=== PATIENT | female | born 1945 | race Caucasian/White ===

== ENCOUNTER 2019-02-22 08:21 | Outpatient (RCR) | payer MEDICARE, BC, SELFPAY | END 2019-03-12 23:59 | disposition home or self-care (01) | LOC: SPT 08:21 | PROVIDERS: Family Provider Family Medicine; PCP Family Medicine; Referring Provider Nurse Practitioner Family; Visit Provider Nurse Practitioner Family | DX: M54.5 Low back pain (principal) | CPT/HCPCS: 97110; 97162 ==

== ENCOUNTER 2019-03-13 06:00 | Outpatient (RCR) | payer MEDICARE, BC, SELFPAY | END 2019-04-10 23:59 | disposition home or self-care (01) | LOC: SPT 06:00 | PROVIDERS: Family Provider Family Medicine; PCP Family Medicine; Referring Provider Nurse Practitioner Family; Visit Provider Nurse Practitioner Family | DX: M54.5 Low back pain (principal) | CPT/HCPCS: 97110 ==